=== PATIENT | female | born 1970 | race Caucasian/White ===

== ENCOUNTER 2017-08-23 12:45 | Emergency (ER) | payer BC, OTHER ==
[2017-08-23] MEDS ORDERED: CODEINE 30MG/APAP 300MG TAB ONE (13:01)
--- NOTE | 2017-08-23 14:11 | EDPHYS ---
Physician Documentation [facility] Name: Mare Tafoya Age: 46 yrs Sex: Female : 1970 Arrival Date: 08/23/2017 Time: 12:49 Bed 10 Private MD: ED Physician Saúl Rey HPI: 08/23 13:13 This 46 yrs old Female presents to ER via Ambulatory with complaints of kb Shoulder Pain. 13:13 The patient or guardian complains of decreased range of motion, pain, that is acute, kb tenderness. right shoulder. Context: The problem was sustained at home, outdoors, resulted from a fall, slipped on wet stairs, The patient experiences decreased range of motion, when attempts to raise arm, The patient reports no obvious deformity. Onset: The symptoms/episode began/occurred just prior to arrival. Modifying factors: the symptoms are alleviated by nothing. The symptoms are aggravated by movement. Associated signs and symptoms: Pertinent positives: severe pain, Pertinent negatives: abdominal pain, chest pain, diaphoresis, dyspnea, neck pain, shortness of breath, tingling. Severity of symptoms: At their worst the symptoms were moderate, in the emergency department the symptoms are unchanged. Treatment prior to arrival includes: no previous treatment. The patient has not experienced similar symptoms in the past. The patient has not recently seen a physician. Historical: - Allergies: 12:55 hydrocodone-acetaminophen; la1 - PMHx: 12:55 None; la1 - Immunization history:: Adult Immunizations up to date. - Social history:: Smoking status: Patient/guardian denies using tobacco. ROS: 13:12 Constitutional: Negative for fever, chills, and weight loss, Cardiovascular: Negative kb for chest pain, palpitations, and edema, Respiratory: Negative for shortness of breath, cough, wheezing, and pleuritic chest pain, Abdomen/GI: Negative for abdominal pain, nausea, vomiting, diarrhea, and constipation, Skin: Negative for injury, rash, and discoloration, Neuro: Negative for headache, weakness, numbness, tingling, and seizure. 13:12 MS/extremity: Positive for decreased range of motion, pain, tenderness, of the anterior aspect of right shoulder. Exam: 13:11 Constitutional: This is a well developed, well nourished patient who is awake, alert, kb and in no acute distress. Head/Face: Normocephalic, atraumatic. Chest/axilla: Normal chest wall appearance and motion. Nontender with no deformity. No lesions are appreciated. Cardiovascular: Regular rate and rhythm with a normal S1 and S2. No gallops, murmurs, or rubs. Normal PMI, no JVD. No pulse deficits. Respiratory: Lungs have equal breath sounds bilaterally, clear to auscultation and percussion. No rales, rhonchi or wheezes noted. No increased work of breathing, no retractions or nasal flaring. Abdomen/GI: Soft, non-tender, with normal bowel sounds. No distension or tympany. No guarding or rebound. No evidence of tenderness throughout. Skin: Warm, dry with normal turgor. Normal color with no rashes, no lesions, and no evidence of cellulitis. Neuro: Awake and alert, GCS 15, oriented to person, place, time, and situation. Cranial nerves II-XII grossly intact. Motor strength 5/5 in all extremities. Sensory grossly intact. Cerebellar exam normal. Normal gait. 13:11 Musculoskeletal/extremity: Extremities: grossly normal except: noted in the anterior aspect of right shoulder: decreased ROM, pain, tenderness, ROM: limited active range of motion due to pain, Circulation is intact in all extremities. Sensation intact. Vital Signs: 12:55 BP 134 / 84; Pulse 68; Resp 14; Temp 97.3; Pulse Ox 100% on R/A; Weight 72.57 kg; la1 Height 5 ft. 4 in. (162.56 cm); 12:55 Body Mass Index 27.46 (72.57 kg, 162.56 cm) la1 MDM: 12:58 Patient medically screened. kb 13:11 Data reviewed: vital signs, nurses notes. Data interpreted: Pulse oximetry: on room air kb is 100 %. Interpretation: normal. 13:55 Counseling: I had a detailed discussion with the patient and/or guardian regarding: the kb historical points, exam findings, and any diagnostic results supporting the discharge/admit diagnosis, radiology results, the need for outpatient follow up, a orthopedic surgeon, to return to the emergency department if symptoms worsen or persist or if there are any questions or concerns that arise at home. 08/23 13:01 Order name: Shoulder Right (2 View) XRAY; Complete Time: 16:49 kb 04/14 14:10 Order name: Hilary; Complete Time: 14:39 kb Administered Medications: 13:03 Drug: Tylenol #3 (300 mg-30 mg) 1 tablet Route: PO; 14:39 Follow up: Response: No adverse reaction; Pain is decreased la1 Disposition: 15:33 Co-signature as Attending Physician, Saúl Rey MD I agree with the assessment and kdr plan of care. Disposition: 08/23/17 14:10 Discharged to Home. Impression: Pain in right shoulder. - Condition is Stable. - Discharge Instructions: Shoulder Pain, [id number]. - Prescriptions for Tylenol- Codeine #3 300-30 mg Oral Tablet - take 1 tablet by ORAL route every 6 hours As needed; 15 tablet. - Medication Reconciliation Form, Thank You Letter, Antibiotic Education, Prescription Opioid Use form. - Follow up: Emergency Department; When: As needed; Reason: Worsening of condition. Follow up: Private Physician; When: 2 - 3 days; Reason: Recheck today's complaints, Continuance of care, Re-evaluation by your physician. Signatures: Dispatcher [employer] EDSC Cira Alejandro, MEMBERSHIP SALES REPRESENTATIVE-C MEMBERSHIP SALES REPRESENTATIVE-Saúl Altamirano MD MD kdr Williams, Irene, RN Lucien Duarte RN RN la1
--- NOTE | 2017-08-23 14:11 | ER ---
Nurse's Notes [facility] Name: Mare Tafoya Age: 46 yrs Sex: Female : 1970 Arrival Date: 08/23/2017 Time: 12:49 Bed 10 Private MD: Diagnosis: Pain in right shoulder Presentation: 08/23 12:54 Presenting complaint: Patient states: Mechanical fall about 45 minutes ago with pain to la1 right shoulder and decreased ROM. Transition of care: patient was not received from another setting of care. Onset of symptoms was August 23, 2017. Care prior to arrival: None. 12:54 Method Of Arrival: Ambulatory la1 12:54 Acuity: PEGGY 4 la1 Historical: - Allergies: 12:55 hydrocodone-acetaminophen; la1 - PMHx: 12:55 None; la1 - Immunization history:: Adult Immunizations up to date. - Social history:: Smoking status: Patient/guardian denies using tobacco. Screenin:38 Abuse screen: Denies threats or abuse. Nutritional screening: No deficits noted. la1 Tuberculosis screening: No symptoms or risk factors identified. Fall Risk None identified. Assessment: 14:39 Reassessment: Patient is alert, oriented x 3, equal unlabored respirations, skin la1 warm/dry/pink. General: Appears in no apparent distress. Behavior is calm, cooperative. Pain: Complains of pain in right shoulder. Musculoskeletal: Circulation, motion, and sensation intact. Capillary refill < 3 seconds, Range of motion: limited in right shoulder. Vital Signs: 12:55 BP 134 / 84; Pulse 68; Resp 14; Temp 97.3; Pulse Ox 100% on R/A; Weight 72.57 kg; la1 Height 5 ft. 4 in. (162.56 cm); 12:55 Body Mass Index 27.46 (72.57 kg, 162.56 cm) la1 ED Course: 12:49 Patient arrived in ED. tw3 12:54 Triage completed. la1 12:55 Arm band placed on left wrist. la1 12:58 [facility]a Ale[facility]C [facility] kb 12:58 Saúl Rey MD is Attending Physician. kb 13:20 X-ray completed. Portable x-ray completed in exam room. Patient tolerated procedure kp1 well. 13:20 Shoulder Right (2 View) XRAY In Process Unspecified. EDMS 14:13 Karon Omalley, RN is Primary Nurse. iw 14:39 Call light in reach. la1 14:39 No provider procedures requiring assistance completed. Patient did not have IV access la1 during this emergency room visit. Administered Medications: 13:03 Drug: Tylenol #3 (300 mg-30 mg) 1 tablet Route: PO; iw 14:39 Follow up: Response: No adverse reaction; Pain is decreased la1 Outcome: 14:10 Discharge ordered by . lala 14:39 Discharged to home ambulatory. la1 14:39 Condition: stable 14:39 Discharge instructions given to patient, Instructed on discharge instructions, follow up and referral plans. medication usage, Demonstrated understanding of instructions, follow-up care, medications, Prescriptions given X 1. 14:39 Patient left the ED. la1 Signatures: Dispatcher [employer] EDOH Cira Alejandro, CHIEF ESTIMATOR-C CHIEF ESTIMATOR-Ckb Karon Omalley, ANNETTE BRYANT Lucien Canseco RN RN la1 Atul, Taina 3 Zenaida Ho 1
--- NOTE | 2017-08-23 14:32 | RAD REPORT ---
EXAM DESCRIPTION: Shoulder Right 2 View - 08/23/2017 1:22 pm CLINICAL HISTORY: Fall, shoulder pain COMPARISON: None. TECHNIQUE: Internal and external rotation views of the right shoulder were obtained. FINDINGS: There is no fracture or dislocation. AC joint is normal in appearance. No acute or suspici ous findings. IMPRESSION: Negative two-view right shoulder examination.
== END 2017-08-23 14:39 | disposition home or self-care (01) ==
LOC: ER 12:45
DX: M25.511 Pain in right shoulder (principal); W01.0XXA Fall on same level from slipping, tripping and stumbling without subsequent striking against object, initial encounter; Y93.9 Activity, unspecified; Y92.009 Unspecified place in unspecified non-institutional (private) residence as the place of occurrence of the external cause; Z88.5 Allergy status to narcotic agent
CPT/HCPCS: 99283